=== PATIENT | female | born 1965 | race Two or more races ===

== ENCOUNTER 2017-12-11 14:15 | Outpatient (CLI) | payer OTHER | END 2017-12-11 16:58 | disposition home or self-care (01) | LOC: MAMO-SONO 14:15 | DX: Z12.31 Encounter for screening mammogram for malignant neoplasm of breast (principal) ==

== ENCOUNTER → 2017-12-11 14:25 | Outpatient (CLI) | payer OTHER | END | disposition home or self-care (01) | LOC: RAD 13:54 | DX: J40 Bronchitis, not specified as acute or chronic (principal) ==

== ENCOUNTER 2019-02-03 08:28 | Emergency (ER) | payer OTHER ==
[~2019-02-03] VITALS: Ht 162.6 cm; Wt 70.3 kg
[2019-02-03] MEDS ORDERED: OMEPRAZOLE20 M1 (08:50)
[2019-02-03] MEDS ORDERED: FLAGYL500MG (08:50)
[2019-02-03] MEDS ORDERED: CIPRO500 MG/5 M (08:50)
== END 2019-02-03 13:26 | disposition home or self-care (01) ==
LOC: ER 08:28
DX: N80.0 Endometriosis of uterus (principal); R10.2 Pelvic and perineal pain

== ENCOUNTER 2019-02-06 15:14 | Emergency (ER) | payer OTHER ==
[~2019-02-06] VITALS: Ht 167.6 cm; Wt 68.0 kg
[~2019-02-06 15:14] MED LIST: CIPRO500 MG/5 M; FLAGYL500MG; OMEPRAZOLE20 M1
== END 2019-02-06 18:07 | disposition home or self-care (01) ==
LOC: ER 15:14
DX: R10.84 Generalized abdominal pain (principal)